=== PATIENT | female | born 1955 | race Caucasian/White ===

== ENCOUNTER → 2020-04-06 | Outpatient (CLI) | payer OTHER ==
[~2020-04-06] MED LIST: AMBIEN10 M1 PO; AMLODIPINE BES2.5 MG PO; ATARAX,VISTARIL50 MG PO; CARBIDOPA/LEVOD1 TA1 PO; CLONAZEPAM1 MG PO; IBU800 M1 PO; KEPPRA500 MG PO; LAMOTRIGINE100 MG PO; LIBRIUM5 MG PO; LINZESS145 MC1 PO; ONDANSETRON HYDR4 M1 PO; QUETIAPINE FUM100 M3 PO; THEO-24 200MG200 MG PO; VIMPAT50 MG PO
== END | disposition home or self-care (01) ==
LOC: MAMMO 13:56
PROVIDERS: ATTEND Family Medicine
DX: Z12.31 Encounter for screening mammogram for malignant neoplasm of breast (principal); N64.89 Other specified disorders of breast